=== PATIENT | male | born 1940 | race Two or more races ===

== ENCOUNTER 2021-08-03 07:56 | Emergency (ER) | payer BC, MEDICARE, OTHER ==
[~2021-08-03] VITALS: Ht 172.7 cm; Wt 68.0 kg
[2021-08-03 08:18] VITALS: BP 156/74
== END 2021-08-03 09:00 | disposition home or self-care (01) ==
LOC: ER 07:56
DX: T16.1XXA Foreign body in right ear, initial encounter (principal); H61.21 Impacted cerumen, right ear; I10 Essential (primary) hypertension; Z88.5 Allergy status to narcotic agent; X58.XXXA Exposure to other specified factors, initial encounter; Y93.89 Activity, other specified; Y92.89 Other specified places as the place of occurrence of the external cause; Y99.8 Other external cause status
CPT/HCPCS: 69209

== ENCOUNTER 2023-10-05 06:16 | Emergency (ER) | payer OTHER ==
[~2023-10-05] VITALS: Ht 172.7 cm; Wt 70.6 kg
[2023-10-05 06:20] VITALS: BP 119/75; RESP 16; O2SAT 98
[2023-10-05 06:33] VITALS: PULSE 64
[2023-10-05 06:51] LABS: Basophils # (auto) 0.1 10 ^3/uL (0-0.2); Basophils % (auto) 1.2 % (0.0-2.0); Eosinophils # (auto) 0.4 10 ^3/uL (0-0.8); Eosinophils % (auto) 5.2 % (0.0-7.0); Hemoglobin 15.2 g/dL (13.5-17.5); Lymphocytes # (auto) 1.6 10 ^3/uL (0.4-5.4); Mean Corpuscular Hemoglobin 27.9 pg (28.0-32.0); Mean Corpuscular Volume 84.5 fL (80.0-100.0); Monocytes # (auto) 0.7 10 ^3/uL (0-1.3); Monocytes % (auto) 9.5 % (0.0-12.0); Neutrophils # (auto) 4.9 10 ^3/uL (1.6-8.6); Neutrophils % (auto) 63.1 % (37.0-80.0); Nucleated Red Blood Cells % 0.1 %; Red Blood Cells 5.44 10^6/uL (4.5-5.90); Red Cell Distribution Width 14.6 % (11.8-14.3); White Blood Cell 7.8 10^3/uL (4.4-10.8)
[2023-10-05] MEDS ORDERED: NITROGLYCERIN 0.4 MG SL TAB SL ONE (07:00)
[2023-10-05] MEDS ORDERED: ASPirin 325 MG TAB PO ONE (07:00)
[2023-10-05 07:34] LABS: Chloride 107 mmol/L (98-107); Potassium 4.5 mmol/L (3.5-5.1); Sodium 138 mmol/L (136-145)
[2023-10-05 07:35] LABS: Calcium 9.8 mg/dL (8.5-10.1)
[2023-10-05 07:40] LABS: BUN/Creatinine Ratio 8.5 (10.0-20.0); Blood Urea Nitrogen 11 mg/dL (9-23); Glucose 106 mg/dL (74-106)
[2023-10-05 07:56] LABS: Anion Gap 6 (5-15); Carbon Dioxide 25 mmol/L (20-30)
[2023-10-05] MEDS ORDERED: ENOXAPARIN SOD 80 MG/0.8ML SYRINGE SC ONE (08:30)
== END 2023-10-05 09:24 | disposition left against medical advice (07) ==
LOC: ER 06:16
DX: R07.9 Chest pain, unspecified (principal); J44.9 Chronic obstructive pulmonary disease, unspecified; R79.89 Other specified abnormal findings of blood chemistry; I10 Essential (primary) hypertension; Z95.0 Presence of cardiac pacemaker; Z88.8 Allergy status to other drugs, medicaments and biological substances
CPT/HCPCS: 36415; 80048; 84484; 85025; 93005